=== PATIENT | female | born 1995 | race Caucasian/White ===

== ENCOUNTER 2018-10-31 16:12 | Emergency (ER) | payer MEDICAID ==
[~2018-10-31] VITALS: Ht 152.4 cm; Wt 65.3 kg
[2018-10-31 16:28] VITALS: BP 114/71; Ht 152.4 cm; Wt 65.3 kg
[2018-10-31 17:47] LABS: BASOPHIL % 0.4 % (0-2); PLATELET COUNT 288 x10^3mcL (130-400)
== END 2018-10-31 18:17 | disposition home or self-care (01) ==
LOC: ED 16:12
PROVIDERS: Emergency Medicine
DX: N93.8 Other specified abnormal uterine and vaginal bleeding (principal)
CPT/HCPCS: 36415

== ENCOUNTER 2019-11-06 04:20 | Emergency (ER) | payer SELFPAY ==
[~2019-11-06] VITALS: Ht 162.6 cm; Wt 65.8 kg
[2019-11-06 04:26] VITALS: Ht 162.6 cm; Wt 65.8 kg
[2019-11-06 05:18] LABS: BASOPHIL % 0.3 % (0-2); PLATELET COUNT 301 x10^3mcL (130-400)
[2019-11-06 05:23] LABS: RED CELL DISTRIBUTION WIDTH 14.6 % (11.5-14.5)
[2019-11-06 07:03] VITALS: BP 102/51
== END 2019-11-06 07:03 | disposition home or self-care (01) ==
LOC: ED 04:20
PROVIDERS: Emergency Medicine
DX: N93.8 Other specified abnormal uterine and vaginal bleeding (principal)
CPT/HCPCS: 36415